=== PATIENT | male | born 1990 | race Asian ===

== ENCOUNTER 2020-10-10 05:14 | Inpatient (IN) | payer OTHER ==
[2020-10-10] VITALS (16 sets, daily range): BP systolic 106–142; BP diastolic 62–83
[~2020-10-10] VITALS: Ht 177.8 cm; Wt 85.3 kg
[2020-10-10] MEDS ORDERED: Lidocaine 1% MPF 10mg/ml 5ml ONE (06:43)
[2020-10-10] MEDS ORDERED: Sodium Chloride 10ml vial INJ ONE (06:43)
[2020-10-10] MEDS ORDERED: fentaNYL 100 mcg/2 mL IV ONE (06:43)
[2020-10-10] MEDS ORDERED: Lidocaine 1% Plain 30 ml INJ ONE ×2 (06:47→08:52)
--- NOTE | 2020-10-10 06:57 | Anethesia Preoperative Eval ---
Anesthesia Pre-op PMH/ROS General Date of Evaluation: Oct 10, 2020 Time of Evaluation: 07:01 Anesthesiologist: Sydnie ASA Score: ASA 1 Mallampati Score Class I : Soft palate, uvula, fauces, pillars visible Class II: Soft palate, uvula, fauces visible Class III: Soft palate, base of uvula visible Class IV: Only hard plate visible Mallampati Classification: Class II Surgeon: Sara Diagnosis: Neck Pain Surgical Procedure: ADR C5-6, ACDF C4-5 Family History: no anesthesia problems Allergies: Coded Allergies: No Known Allergies (Unverified , 10/09/20) Medications: see eMAR Patient NPO?: Yes Anesthesia Pre-op Phys. Exam Physician Exam Last Vital Signs Date Time Temp Pulse Resp B/P (MAP) Pulse Ox O2 Delivery O2 Flow Rate FiO2 10/10/20 06:06 Room Air 10/10/20 06:03 97.9 51 18 108/66 (80) 99 Constitutional: NAD Neurologic: CN 2-12 intact Cardiovascular: RRR Respiratory: CTA Gastrointestinal: S/NT/ND Airway Exam Mallampati Score: Class II MO: full ROM: limited Teeth: intact Anesthesia Pre-op A/P Risk Assessment & Plan Assessment: ASA 1 Plan: GA, SED, GlideScope Status Change Before Surgery: No Pre-Antibiotics Dru Grams Ancef IV Given Within 1 Hr of Incision: Yes Time Given: 07:31 Macario Otoole MD Oct 10, 2020 06:57
[2020-10-10] MEDS ORDERED: Rocuronium Bromide 50mg/5ml Inj IV ONE (07:00)
[2020-10-10] MEDS ORDERED: Acetaminophen (Non formulary) 100 ML IV ONE (07:00)
[2020-10-10] MEDS ORDERED: propofoL 1,000mg/100ml IV ONE (07:00)
[2020-10-10] MEDS ORDERED: Atropine Sulfate 0.4mg/ml inj IVP PRN (07:00)
[2020-10-10] MEDS ORDERED: DiphenhydrAMINE 50mg/ml Inj IVP PRN (07:00)
[2020-10-10] MEDS ORDERED: Metoclopramide 10mg/2ml Inj IVP PRN ×2 (07:00→07:45)
[2020-10-10] MEDS ORDERED: Labetalol 5mg/ml 20ml vial IV PRN (07:00)
[2020-10-10] MEDS ORDERED: Sterile Water Irrig 1000ml IRRIG ONE (07:00)
[2020-10-10] MEDS ORDERED: Hydromorphone 0.5mg/0.5ml inj IVP PRN (07:00)
[2020-10-10] MEDS ORDERED: HYDROcodone/Acetamin 7.5/325 tab ORAL PRN ×2 (07:00→07:45)
[2020-10-10] MEDS ORDERED: Meperidine 25mg/1ml Inj (FOR RIGORS ONLY) IV PRN (07:00)
[2020-10-10] MEDS ORDERED: Ketorolac 30mg Inj IV PRN ×2 (07:00)
[2020-10-10] MEDS ORDERED: NS Irrig 1000ml ONE (07:00)
[2020-10-10] MEDS ORDERED: fentaNYL 100 mcg/2 mL IV PRN (07:00)
[2020-10-10] MEDS ORDERED: LR 1000ml 1,000 ML IVLG SCH (07:00)
[2020-10-10] MEDS ORDERED: LORazepam Inj 2mg/ml 1ml IV PRN (07:00)
[2020-10-10] MEDS ORDERED: ceFAZolin sod 2 GM in NS 55 ML IVPB ONE (07:00)
[2020-10-10] MEDS ORDERED: LR 1000ml ONE (07:00)
[2020-10-10] MEDS ORDERED: HYDROcodone/Acetamin 5/325 tab ORAL PRN ×2 (07:00→07:45)
[2020-10-10] MEDS ORDERED: Midazolam 2mg/2ml Inj IVP PRN (07:00)
[2020-10-10] MEDS ORDERED: oxyCODONE HCL/Acetaminophen 5/325mg ORAL PRN (07:00)
[2020-10-10] MEDS ORDERED: Vancomycin 1gm vial IVPB ONE (07:06)
--- NOTE | 2020-10-10 07:06 | 48 Hour Post Anesthesia Eval ---
Post Anesthesia Evaluation Procedure: ADR C5-6, ACDF C4-5 Date of Evaluation: Oct 10, 2020 Time of Evaluation: 12:43 Blood Pressure Systolic: 118 0: 67 Pulse Rate: 71 Respiratory Rate: 18 Temperature (Fahrenheit): 98 O2 Sat by Pulse Oximetry: 100 Airway: patent Nausea: No Vomiting: No Pain Intensity: 2 Hydration Status: adequate Cardiopulmonary Status: Stable Mental Status/LOC: patient returned to baseline Follow-up Care/Observations: 0 Post-Anesthesia Complications: 0 Follow-up care needed: N/A Macario Otoole MD Oct 10, 2020 07:06
--- NOTE | 2020-10-10 07:06 | Immediate Post-Op Evaluation ---
Immediate Post-Op Evalulation Immediate Post-Op Evalulation Procedure: ADR C5-6, ACDF C4-5 Date of Evaluation: Oct 10, 2020 Time of Evaluation: 10:19 IV Fluids: 700 LR Blood Products: 0 Estimated Blood Loss: 25 Urinary Output: 0 Blood Pressure Systolic: 122 Blood Pressure Diastolic: 64 Pulse Rate: 71 Respiratory Rate: 16 O2 Sat by Pulse Oximetry: 99 Temperature (Fahrenheit): 97.3 Pain Score (1-10): 2 Nausea: No Vomiting: No Complications 0 Patient Status: awake, reacts, patent, extubated, none Hydration Status: adequate Dru Grams Ancef IV Given Within 1 Hr of Incision: Yes Time Given: 07:31 Macario Otoole MD Oct 10, 2020 07:06
[2020-10-10] MEDS ORDERED: Bacitracin 50000 Units Vial ONE (07:07)
[2020-10-10] MEDS ORDERED: Gelfoam Size TOPIC ONE (07:07)
[2020-10-10] MEDS ORDERED: Thrombin 5000 units TOPIC ONE (07:07)
--- NOTE | 2020-10-10 07:40 | Pre-Procedure Note/Attestation ---
Pre-Procedure Note/Attestation Complete Prior to Procedure Planned Procedure: not applicable Procedure Narrative: Anterior cervical discectomy and fusion of Cervical 45 and artificial disc r eplacement of C56 Indications for Procedure Pre-Operative Diagnosis: C45 and C56 herniation Attestation I attest that I discussed the nature of the procedure; its benefits; risks and complications; and alternatives (and the risks and benefits of such alternatives), prior to the procedure, with the patient (or the patient's legal open claims representative). I attest that, if there was a reasonable possibility of needing a blood transfusion, the patient (or the patient's legal open claims representative) was given the [place] Department [employer] standardized written summary, pursuant to the [employer] Blood Safety Act ([place] Health and Safety Code # 1645, as amended). I attest that I re-evaluated the patient just prior to the surgery and that there has been no change in the patient's H&P, except as documented below: Lenard Ruiz MD Oct 10, 2020 07:40
--- NOTE | 2020-10-10 07:41 | Brief Operative Note ---
Immediate Post Operative Note Operative Note Chief Complaint: neck pain and right sided radiculopathy Pre-op Diagnosis: C45 and C56 herniation Procedure: Anterior cervical discectomy and fusion of Cervical 45 and artificial disc replacement of C56 Post-op Diagnosis: same as pre-op Findings: consistent w/pre-op dx studies Surgeon: Sara Early [employer] Director: Benjamin Anesthesiologist: Sydnie Anesthesia: general Specimen: none Complications: none Condition: stable Fluids: IVF Estimated Blood Loss: minimal Drains: none Implant(s) used?: Yes - Prodisc c sz 5, nuvasive interlock c sz 6 3screw 13x3 osteocell 1cc Lenard Ruiz MD Oct 10, 2020 07:41
[2020-10-10] MEDS ORDERED: Milk of Magnesia 30ml Ud ORAL PRN (07:45)
[2020-10-10] MEDS ORDERED: Naloxone 0.4mg/ml Inj IVP PRN (07:45)
[2020-10-10] MEDS ORDERED: Chloraseptic Spray 20mL Bottle ORAL PRN (07:45)
[2020-10-10] MEDS ORDERED: Morphine Sulfate 4mg/ml Inj (IV USE ONLY) IV PRN ×2 (07:45)
[2020-10-10] MEDS ORDERED: Morphine Sulfate 2mg/ml Inj(IV/IM USE ONLY) IV PRN (07:45)
[2020-10-10] MEDS ORDERED: HYDROmorphone 1mg/ml Carpuject IVP PRN (07:45)
--- NOTE | 2020-10-10 13:26 | General Progress Note ---
Subjective Allergies: Coded Allergies: No Known Allergies (Unverified , 10/09/20) Subjective asked to follow up postop Objective Last 24 Hour Vital Signs Date Time Temp Pulse Resp B/P (MAP) Pulse Ox O2 Delivery O2 Flow Rate FiO2 10/10/20 12:00 Nasal Cannula 2.0 10/10/20 11:30 97.1 64 15 125/78 100 Nasal Cannula 3 10/10/20 11:15 72 16 131/76 100 Nasal Cannula 3 10/10/20 11:00 67 15 142/75 100 Nasal Cannula 3 10/10/20 10:45 71 14 137/81 100 Nasal Cannula 3 10/10/20 10:30 75 17 133/83 100 Nasal Cannula 3 10/10/20 10:15 67 15 120/69 100 Simple Mask 6 10/10/20 10:10 66 14 125/66 100 Simple Mask 6 10/10/20 10:05 71 18 100 10/10/20 10:04 71 16 99 10/10/20 10:01 97.3 71 16 122/64 100 Simple Mask 6 10/10/20 06:06 Room Air 10/10/20 06:03 97.9 51 18 108/66 (80) 99 Intake and Output 10/09/20 10/10/20 19:00 07:00 # Voids 1 Height (Feet): 5 Height (Inches): 10.00 Weight (Pounds): 188 Objective WDWN NAD clear breath sounds bilaterally without rhonchi or wheeze [id number] without MRG NABS nontender no HSM no CCE nonfocal Assessment/Plan Assessment/Plan: C45 and C56 herniation Anterior cervical discectomy and fusion of Cervical 45 and artificial disc replacement of C56 PLAN 1. incentive spirometry 2. SCD 3. PT evaluation and therapy 4. Hydration 5. Pain management 6. discharge once stable with outpatient follow up Jeanmarie Moreno MD Oct 10, 2020 13:26
[2020-10-10] MEDS: ceFAZolin sod 1 GM in D5W 55 ML IV SCH (14:54)
[2020-10-10] MEDS: NS w/KCl 20mEq 1000ml 1,000 ML IV SCH (14:55)
--- NOTE | 2020-10-10 15:45 | Operative Note - Dictated ---
DATE OF OPERATION: 10/10/2020 SURGEON: Lenard Ruiz MD, Orthopaedic Spine Surgeon. CRM BUSINESS ANALYST: BETSY Calhoun PREOPERATIVE DIAGNOSES: 1. Intractable neck pain. 2. Radiculopathy. 3. Herniation, C4-C5 and C5-C6. 4. Neural foraminal stenosis, C4-C5 and C5-C6. 5. Stenosis. POSTOPERATIVE DIAGNOSES: 1. Intractable neck pain. 2. Radiculopathy. 3. Herniation, C4-C5 and C5-C6. 4. Neural foraminal stenosis, C4-C5 and C5-C6. 5. Stenosis. PROCEDURE PERFORMED: 1. Anterior cervical discectomy and artificial disc replacement of C5-C6 ProDisc C arthroplasty size 5. 2. Anterior cervical discectomy and fusion of C4-C5 NuVasive Interlock C size 6 with 13 mm screws x3 and 1 mL of Osteocel bone. 3. Use of intraoperative microscope. 4. Motor evoked potential monitoring. 5. Somatosensory evoked potential monitoring. 6. Supervision and interpretation of fluoroscopy. COMPLICATIONS: None. ANESTHESIA: General. ESTIMATED BLOOD LOSS: Less than 100 mL. INDICATIONS FOR SURGERY: This patient is a 30-year-old male, who has a history of diagnoses as listed above. As of result of this, the patient sustained intractable neck pain, radiculopathy, herniation, C4-C5 and C5-C6, neural foraminal stenosis, C4-C5 and C5-C6, stenosis. We tried a course of conservative management but despite this course there was still a significant component of persistent, recalcitrant neck pain and arm pain. The MRI demonstrated significant neural foraminal compromise secondary to disc herniations at C4-C5 and C5-C6. We had a long discussion with C4-C5 and C5-C6 regarding the risks and benefits of surgery. Our discussion included but was not limited to nonoperative management, chiropractic management, another epidural steroid injection as well definitive management in the form of surgery. We recommended an artificial disc replacement of cervical C5-C6 and anterior cervical discectomy and fusion of cervical C4-C5 as final definitive management. We reviewed the risks and benefits of surgery with the patient. Our discussion included a comprehensive review of the clinical issues and the nature of the clinical decision. We reviewed the alternatives, including doing nothing. The patient elected to proceed accordingly with an artificial disc replacement of cervical C5-C6 and anterior cervical discectomy and fusion of cervical C4-C5. We had a long discussion regarding the risks, alternatives and benefits of surgery. Our description of the risks included a discussion in person as well as a signed consent which detailed all pertinent risks from the procedure itself. Briefly, our discussion included but was not limited to infection, bleeding, pseudarthrosis, spinal cord injury, neurovascular injury, dural tear, CSF leak, neuropathy, paralysis, permanent weakness/drop foot/drop arm, paresthesias, blindness, palsy and weakness. The patient understood there may be a need for a revision surgery or additional procedures. Approach-related complications including dysphonia, dysphagia, blindness, permanent vocal cord and neural injury, hematoma, swallowing and breathing difficulty. Medical complications were reviewed including liver, kidney, shock, cardiopulmonary failure, anesthesia complications including , swelling, damage to the musculature, larynx/voice injury or loss, esophagus/throat, trachea, blood vessels and muscles/muscular sprain and lungs/pneumothorax during this surgical procedure; injury to deeper structures may be temporary or permanent. After this review of risks, the patient understood these and elected to proceed. A written and verbal consent was given. We discussed the pros and cons of all the alternatives. We discussed the uncertainties associated with the decision. Afterwards I assessed the patient's understanding and explored their preferences. All questions were answered and no guarantees were given. Medical clearance was obtained prior to surgery. INTRAOPERATIVE FINDINGS: C4-C5; there was an overall characteristic of the disc to be soft, not calcified, not dehydrated, not crumbled and appropriate disc height. On resection of the anterior portion of the disc, I noticed a tear in the right lateral margin of the posterior longitudinal ligaments. This tear was approximately 10 to 15 degrees cephalad to caudad. Probing this tear, which appeared to have fresh clean edges with a Microsect 1-B led to the discovery of herniated nuclear fragments, which were encroaching on the thecal sac and spinal cord as well as neural elements on the left side and the left neural foramina predominantly. However, there were also some fragments extending toward the left side. This was resected with a Kerrison 1 and Kerrison 2 rongeurs until complete foraminotomy was performed at C4-C5. C5-C6 intraoperative findings; the disc itself was soft and spongy. I appreciated no large anterior bony spurs on resection of the disc itself. I noted there to be a soft characteristic of the disc. There was no crumbling or dehydration of the disc whatsoever. Upon removal of the disc, I noted two tears in the posterior longitudinal ligament. One tear was on the right side. Another tear was more left-sided and paracentral, probing of the left-sided paracentral tear with Microsect 1-B led to the discovery of a large nuclear fragment, which was bulbous and encroaching posteriorly through the midline onto the left-sided neural foramina. This was all found to be nuclear pulposus tissue. On the right side, probing of the tear led to discovery of small nuclear tissue, which was encroaching on the right neural foramina. of both tears appeared almost vertical and there were cephalad to caudad direction. The edges of the tears appeared fresh and clean like freshly torn edges in the posterior longitudinal ligament. This did not appear to be a degenerative process more traumatic in nature, which is to be expected given the majority of the disc was soft and spongy throughout. The disc fragments were resected with a combination of Kerrison 1 and Kerrison 2 rongeur until all fragments were resected without difficulty. DESCRIPTION OF PROCEDURE: Under the benefit of general endotracheal anesthesia and with the assistance of the entire operative team, the patient was moved from the [facility] onto the operative table in the supine position. The head was secured and carefully positioned appropriately. Bilateral arms were secured with Gel Pads and foam and all bony prominences were padded. For the bilateral lower extremities SCD and RICARDO hose were placed for DVT prophylaxis. A surgical timeout was called which corroborated our planned procedure of artificial disc replacement of an artificial disc replacement of cervical C5-C6 and anterior cervical discectomy and fusion of cervical C4-C5. Preoperative antibiotics were administered within 30 minutes of the incision for antibiotic prophylaxis. Using lateral fluoroscopic radiography, the operative levels were delineated. Next the wound was prepped and draped with Chlorhexidine and sterile drapes. An incision was based on lateral fluoroscopy and we centered our incision at the C4-C5 and C5-C6. Interspace and next using a standard Atwood-Busby anterior based approach the incision was taken down through the skin and subcutaneous tissues until the vertebral bodies and their corresponding disc spaces were visualized. A needle was placed into the interspace to confirm placement of the operative interspace and we performed the remainder of procedure under microscopic visualization. Next, using a bipolar and Bovie cautery to ensure meticulous hemostasis, the longus colli was mobilized bilaterally and retractors were placed deep to the longus colli bilaterally to address retraction. Next we turned our attention to the radical anterior discectomy. This was initially performed at C5-C6 first by using a 15 blade scalpel followed by narrow pituitaries and a Microsect 5-B curette was used to denude the endplate of all cartilaginous tissue. Next using a LiveLoop AM8 drillbit the vertebral endplates were denuded of all residual cartilage in a [id number] and layer by layer fashion, and ultimately the posterior uncinate joints bilaterally and posterior osteophytic lips and margins were carefully denuded until clear visualization of the posterior longitudinal ligament was possible. An endplate preparation was performed in the exact same fashion using an intervertebral spreader box operator, sequential distraction was obtained throughout the disc space. We saw a tear/rent in the PLL and this was carefully mobilized and dissected using a Microsect 1-B curette until we visualized a discrete disc herniation with compression of the spinal cord as well as neural foramina left more than the right side. This neural foraminal compression was carefully resected using a Kerrison-1 and Kerrison-2 rongeurs until complete decompression of the spinal cord was visualized and complete decompression of the neural foramina and nerve root therein as well as the axilla and lateral margin of the nerve root was visualized and subsequently completely decompressed. The family was notified at one hour intervals throughout the procedure to provide for consistent updates. We next turned our attention towards trialing our implant within the disc space. We initially tried size 5 and this ProDisc Cervical spacer fit well in regards to depth and width. This implant was opened and prepared. Next under direct visualization I confirmed excellent fit in respect to the anterior and posterior vertebral bodies, the uncinate joints and in regards to toggle. Once satisfied with this placement on serial AP and lateral fluoroscopy I turned my attention towards cutting our chester. These were cut in the bones using a reciprocating drill and afterwards all free fragments of bone were irrigated. Next FloSeal was placed into the interspace, then removed in its entirety and the implant was inserted using fluoroscopic guidance. Next, the Synthes ProDisc C size 5 ADR was then carefully advanced and secured into the intervertebral space under direct visualization and with supervision of AP and lateral fluoroscopic views. I next turned my attention towards the radical anterior discectomy. This was then performed at C4-C5 first by using a 15 blade scalpel followed by narrow pituitaries and a micro-sect 5-B curette was used to denude the endplate of all cartilaginous tissue. Next using a LiveLoop AM8 drillbit the vertebral endplates were denuded of all cartilaginous tissue in a [id number] and layer by layer fashion, and ultimately the posterior uncinate joints bilaterally and posterior osteophytic lips and margins were carefully denuded until wide and thorough visualization of the posterior longitudinal ligament was possible. At this level the endplate preparation was performed in the exact same fashion using an intervertebral spreader box operator, sequential distraction was obtained throughout the disc space. We saw a tear/rent in the PLL and this was carefully mobilized and dissected using a micro-set 1-B curette until we visualized an obvious disc herniation with compression of the spinal cord as well as neural foramina left-sided. This neural foraminal compression was carefully resected using a Kerrison-1 and Kerrison-2 rongeurs until complete decompression of the spinal cord was visualized and complete decompression of the neural foramina and nerve root therein as well as the axilla and lateral margin of the nerve root was visualized and subsequently completely decompressed. We next turned our attention towards trialing our implant within the disc space. We initially tried size 5 and afterwards size 6 trial from the NuVasive interlock system at each level, which appeared to be appropriate under AP and lateral fluoroscopy as well as in terms of its height, depth, width and lack of toggle. The PEEK polyetheretherketone interbody cages were then both packed with allograft bone from Osteocel and local autograft bone matrix. Next these were then carefully advanced and secured into their intervertebral spaces under direct visualization and with supervision of AP and lateral fluoroscopic views. We next turned our attention towards plating. Plating was performed at each level with the NuVasive interlock-C plating system. A total of three screws, size 6 mm in length were inserted and confirmed under AP and lateral fluoroscopy and confirmed to be in excellent position. After a finger sweep we confirmed removal of all sponges. The retractor was removed and we next turned our attention to meticulous hemostasis with FloSeal and bipolar cautery. After the sponge and needle count was again found to be correct with our second count, we next turned our attention to closure. The wound was again copiously irrigated with antibiotic impregnated saline Closure consisted of 4-0 clear nylon for the platysma, and 5-0 clear nylon for the superficial skin. Final skin closure and dressings consisted of Dermabond. Prior to final closure, a final radiograph was obtained which demonstrated the hardware is intact with excellent position throughout. The patient tolerated the procedure well. The patient was carefully extubated after the conclusion of surgery. We discussed the findings of the surgery with the family upon completion of the case. At this point the patient was transferred to the spine floor for further observation. Lenard Ruiz M.D. DR: GWENDOLYN JOB#: [id number] CC:
[2020-10-10] MEDS: HYDROcodone/Acetamin 7.5/325 tab ORAL PRN ×2 (16:09→22:26)
--- NOTE | 2020-10-10 16:25 | Diagnostic Imaging Report ---
INDICATION: Pain, intraoperative TECHNIQUE: Intraoperative imaging Fluoroscopy time: . 2.7 seconds Total dose: 0.86600 mGym2 Total number of images: 4 COMPARISON: None FINDINGS: Intraoperative images demonstrate localizer tool projected at C5-6, subsequent placement of a disc prosthesis at C5-6 and anterior fusion hardware at C4-5 IMPRESSION: Intraoperative imaging, as described
[2020-10-10] MEDS: Docusate 100mg cap ORAL SCH (18:00)
--- NOTE | 2020-10-10 18:10 | Diagnostic Imaging Report ---
Indication: Postoperative neck surgery, pain Technique: 2 views of the cervical spine Comparison: none Findings: Bony alignment is normal. Patient is status post anterior fusion of C4-5, and placement of a disc prosthesis at C5-6. Hardware appears well aligned. Retained air from the surgical exposure seen in the soft tissues. Impression: Postoperative cervical spine. No unusual features
[2020-10-11] VITALS: BP 110/62
[2020-10-11] MEDS: ceFAZolin sod 1 GM in D5W 55 ML IV SCH ×2 (00:41→06:58)
[2020-10-11] MEDS: NS w/KCl 20mEq 1000ml 1,000 ML IV SCH (00:42)
[2020-10-11 08:00] VITALS: BP 112/68
[2020-10-11] MEDS: HYDROcodone/Acetamin 7.5/325 tab ORAL PRN (08:33)
[2020-10-11] MEDS: Docusate 100mg cap ORAL SCH (09:00)
[2020-10-11] MEDS ORDERED: NORCO 10-325 T1 EACH ORAL (09:21)
--- NOTE | 2020-10-11 18:17 | General Progress Note ---
Subjective Allergies: Coded Allergies: No Known Allergies (Unverified , 10/09/20) Subjective stable pain controlled eating well ambulating Objective Last 24 Hour Vital Signs Date Time Temp Pulse Resp B/P (MAP) Pulse Ox O2 Delivery O2 Flow Rate FiO2 10/11/20 09:00 Room Air 10/11/20 08:00 97.9 78 18 112/68 (83) 97 10/11/20 00:00 97.6 70 18 110/62 (78) 96 10/10/20 21:00 Room Air 10/10/20 20:00 97.7 65 18 112/62 (79) 96 Intake and Output 10/10/20 10/11/20 19:00 07:00 Intake Total 300 ml 955 ml Balance 300 ml 955 ml Intake IV Total 300 ml 955 ml Height (Feet): 5 Height (Inches): 10.00 Weight (Pounds): 188 Objective WDWN NAD clear breath sounds bilaterally without rhonchi or wheeze [id number] without MRG NABS nontender no HSM no CCE nonfocal Assessment/Plan Assessment/Plan: C45 and C56 herniation Anterior cervical discectomy and fusion of Cervical 45 and artificial disc replacement of C56 PLAN 1. incentive spirometry 2. SCD 3. PT evaluation and therapy 4. Hydration 5. Pain management 6. discharge home seen earlier impression, plan, and exam edited and reviewed in detail care discussed with Jeanmarie Cornelius MD Oct 11, 2020 18:17
--- NOTE | 2020-10-13 11:52 | Discharge Summary ---
Discharge Summary Hospital Course Date of Admission Oct 10, 2020 at 05:14 Date of Discharge Oct 11, 2020 at 09:45 Admitting Diagnosis cervical radiculopathy, neck pain, herniation Reason for Hospitalization: Elective surgery OSKAR Fang is a 30 year old male who was admitted on Oct 10, 2020 at 05:14 for Herniated Nucleus Pulposus, Pain, Radiculopathy Consultations Dr Moreno IM Procedures s/p 10/[address] Ruiz 1. Anterior cervical discectomy and artificial disc replacement of C5-C6 ProDisc C arthroplasty size 5. 2. Anterior cervical discectomy and fusion of C4-C5 NuVasive Interlock C size 6 with 13 mm screws x3 and 1 mL of Osteocel bone. 3. Use of intraoperative microscope. 4. Motor evoked potential monitoring. 5. Somatosensory evoked potential monitoring. 6. Supervision and interpretation of fluoroscopy. Hospital Course status post surgery course of recovery uneventful initially IV fluids s/p perioperative antibiotics neurovascular status closely monitored, remained stable incision clean , dry and intact pain management addressed ; and pain was controlled remained hemodynamically stable ambulated with PT fall precautions maintained; safe for ambulation DVT prophylaxis provided use of incentive spirometry was encouraged while in the bed tolerated diet , IV fluids discontinued GI prophylaxis provided antiemetics were on board as needed blood pressure was managed with clonidine and remained stable blood sugar was closely monitored voided freely bowel regimen instituted patient was stable for discharge discharge instructions provided follow up with surgeon in the office as advised FINAL DIAGNOSES 1.Intractable neck pain. 2. Radiculopathy. 3. Herniation, C4-C5 and C5-C6. 4. Neural foraminal stenosis, C4-C5 and C5-C6. 5. Stenosis 6. s/p Anterior cervical discectomy and fusion of C4-5 and artificial disc replacement of cervical C5-6 Discharge Medications Continued Medications: Hydrocodone Bit/Acetaminophen 10-325* (Chualar 10-325*) 1 Each Tablet 1 TAB ORAL Q8HR PRN for For Pain, #90 TAB 0 Refills PRN PAIN Discharge Condition Upon Discharge: stable Discharge Vital Signs Last Vital Signs Date Time Temp Pulse Resp B/P (MAP) Pulse Ox O2 Delivery O2 Flow Rate FiO2 10/11/20 09:00 Room Air 10/11/20 08:00 97.9 78 18 112/68 (83) 97 10/10/20 12:00 2.0 Discharge Disposition Patient was discharged home Discharge Instructions For Congestive Heart Failure Reminder I have been assigned to complete a D/C Summary on this account. I was not involved in the patient management Елена Powell NP Oct 13, 2020 11:52
== END 2020-10-11 09:45 | disposition home or self-care (01) | DRG 473 ==
LOC: SDSOVERFLO 05:14 → 3E 12:03
PROC: 0RB30ZZ Excision of Cervical Vertebral Disc, Open Approach (ICD-10-PCS; principal; 2020-10-10 07:00)
PROC: 0RR30JZ Replacement of Cervical Vertebral Disc with Synthetic Substitute, Open Approach (ICD-10-PCS; principal; 2020-10-10 07:00)
PROC: 0RG10A0 Fusion of Cervical Vertebral Joint with Interbody Fusion Device, Anterior Approach, Anterior Column, Open Approach (ICD-10-PCS; principal; 2020-10-10 07:00)
DX: M50.121 Cervical disc disorder at C4-C5 level with radiculopathy (principal); M48.02 Spinal stenosis, cervical region
CPT/HCPCS: 36415; 72040; 76000; 86850; 86900; 86901; 87081; J2405